=== PATIENT | female | born 1960 | race Caucasian/White ===

== ENCOUNTER → 2020-12-05 14:00 | Outpatient (CLI) | payer OTHER, SELFPAY ==
[2020-12-05] MEDS: COVID-19 VACC #1, MRNA(MOD) 100 MCG/0.5 ML VIAL IM (14:05)
== END ==
PROVIDERS: Visit Provider Internal Medicine
DX: Z23 Encounter for immunization (principal)
CPT/HCPCS: 0011A; 91301

== ENCOUNTER → 2021-01-02 14:01 | Outpatient (CLI) | payer OTHER, SELFPAY ==
[2021-01-02] MEDS: COVID-19 VACC #2, MRNA(MOD) 100 MCG/0.5 ML VIAL IM (14:10)
== END ==
PROVIDERS: Visit Provider Internal Medicine
DX: Z23 Encounter for immunization (principal)
CPT/HCPCS: 0012A; 91301

== ENCOUNTER 2021-05-01 16:44 | Emergency (ER) | payer OTHER, SELFPAY ==
[2021-05-01 16:48] VITALS: BP 174/97; PULSE 94; RESP 18; TEMP 37.1; O2SAT 100
[2021-05-01 17:28] LABS: COVID19 -Nasal RAPID Negative (Negative)
--- NOTE | 2021-05-01 17:56 | ED.RECABL ---
HPI - Recheck/Abnormal Lab/Rx <Vanessa Gupta PA-C - Last Filed: 05/01/21 20:21> General Chief Complaint: Recheck/Abnormal Lab/Rx Stated Complaint: states had exposure to Covid Time Seen by Provider: 05/01/21 17:43 Source: patient Mode of arrival: Ambulatory History of Present Illness HPI narrative: [age] to year old female COVID vaccinated who presents to the ER requesting COVID testing as she may have been exposed to COVID. Patient states that she was around a friend of hers whose son tested positive today. 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 Denies any symptoms today. Related Data Previous Rx's Medication Instructions Recorded lisinopril 10 mg tablet 10 mg PO Q DAY #30 tab 01/23/17 Allergies Allergy/AdvReac Type Severity Reaction Status Date / Time No Known Allergies Allergy Uncoded 12/09/17 12:23 Review of Systems <Vanessa Gupta PA-C - Last Filed: 05/01/21 20:21> Review of Systems Narrative: General: denies fever, chills Head/Neck: denies headache, neck pain Eyes: denies visual changes, eye pain Cardio: denies chest pain, palpitations Respiratory: denies shortness of breath, cough GI: denies abdominal pain, nausea, vomiting, or diarrhea : denies dysuria, hematuria MSK: denies joint pain, muscle weakness Skin: denies rash, itching Neuro: denies numbness, tingling Patient History <Vanessa Gupta PA-C - Last Filed: 05/01/21 20:21> Surgical History History of bilateral salpingo-oophorectomy (BSO) Family History Mother Age: 82 Cancer Hypertension Lymphoma Social History Smoking Status: Current every day smoker Smoking Status: Current every day smoker Exam <Vanessa Gupta PA-C - Last Filed: 05/01/21 20:21> Narrative Exam Narrative: Independently reviewed vitals signs and nursing notes. General: Awake, alert, nontoxic, no cardiorespiratory distress Head/Neck: Atraumatic, neck full range of motion Eyes: EOMI, conjunctiva normal Nose: nares patent, no rhinorrhea Cardio: Regular rate and rhythm, no peripheral edema Respiratory: respirations unlabored without wheezing, stridor, or rales. No retractions. MSK: Moves all extremities, neurovascularly intact Skin: Normal capillary refill, no rash Neuro: Normal speech and cognition, normal gait Initial Vital Signs Initial Vital Signs: Vital Signs Temperature 98.7 F 05/01/21 16:48 Pulse Rate 94 H 05/01/21 16:48 Respiratory Rate 18 05/01/21 16:48 Blood Pressure 174/97 H 05/01/21 16:48 Pulse Oximetry 100 05/01/21 16:48 <Qing Ward DO - Last Filed: 05/06/21 02:29> Initial Vital Signs Initial Vital Signs: Vital Signs Temperature 98.7 F 05/01/21 16:48 Pulse Rate 94 H 05/01/21 16:48 Respiratory Rate 18 05/01/21 16:48 Blood Pressure 174/97 H 05/01/21 16:48 Pulse Oximetry 100 05/01/21 16:48 Course <Vanessa Gupta PA-C - Last Filed: 05/01/21 20:21> Orders Ordered: ED Orders 05/01/21 17:04 COVID19 -Nasal swab/Pre-Proc Stat Vital Signs Vital signs: Vital Signs - 8 hr 05/01/21 16:48 Temperature 98.7 F Pulse Rate 94 H Respiratory Rate 18 Blood Pressure 174/97 H Pulse Oximetry 100 <Qing Ward DO - Last Filed: 05/06/21 02:29> Orders Ordered: ED Orders 05/01/21 17:04 COVID19 -Nasal swab/Pre-Proc Stat Vital Signs Vital signs: Vital Signs - 8 hr 05/01/21 16:48 Temperature 98.7 F Pulse Rate 94 H Respiratory Rate 18 Blood Pressure 174/97 H Pulse Oximetry 100 MDM - Recheck/Abnormal Lab/Rx <BLACK Kohler Last Filed: 05/01/21 20:21> Lab Data Labs: Lab Results 05/01/21 Range/Units 17:04 SARS-CoV-2 (PCR) Negative (Negative) MDM Narrative Medical decision making narrative: 60-year-old COVID vaccinated female who presents to the ER requesting COVID testing for distant/possible exposure. Denies any symptoms today. COVID negative. Please follow up with PCP as directed. Return to clinic/ER precautions discussed with patient for new, not-improving, or worsening symptoms. <Qing Ward DO - Last Filed: 05/06/21 02:29> Lab Data Labs: Lab Results 05/01/21 Range/Units 17:04 SARS-CoV-2 (PCR) Negative (Negative) Discharge Plan Departure Patient Disposition: Home Clinical Impression: Lab test negative for COVID-19 virus Activity Restrictions/Additional Instructions: * Your COVID test today was negative. *What to do: [ ] New medication prescriptions sent to your pharmacy: [ ] [ ] New medication written as a paper prescription [X] No new medications given * if he began of symptoms, please seek retesting with her primary care office or local pharmacy. * if you do not have a primary care provider, please contact the [facility] Resource line at [phone]. They will ask some questions about your medical history and help to get up with a doctor in the community. * Return to the if you should have any new, worsening, or concerning symptoms, such as [chest pain, SOB, cough, fever]. Prescriptions: No Action lisinopril 10 MG tablet 10 mg PO Q DAY Qty: 30 RF: 0 <Qing Ward DO - Last Filed: 05/06/21 02:29> Cosign ED Attending Zullyature Attestation: I was immediately available in the department for consultation. Documentation has been reviewed.
== END 2021-05-01 18:43 | disposition home or self-care (01) ==
PROVIDERS: Emergency Medicine; Emergency Provider Physician Assistant
DX: Z20.822 Contact with and (suspected) exposure to COVID-19 (principal)
CPT/HCPCS: 87635; 99281; 99282; C9803

== ENCOUNTER 2021-07-14 15:01 | Emergency (ER) | payer MEDICAID, SELFPAY ==
[2021-07-14 15:04] VITALS: BP 200/105; PULSE 89; RESP 22; TEMP 36.2; O2SAT 98
[2021-07-14 15:41] LABS: COVID19 -Nasal RAPID POSITIVE (Negative)
[2021-07-14 17:01] VITALS: BP 178/89; PULSE 84; RESP 18; O2SAT 99
--- NOTE | 2021-07-14 20:04 | ED_ITS ---
HPI - URI/Sore Throat <CLAUDE Lassiter - Last Filed: 07/14/21 20:12> General Chief Complaint: Upper Respiratory Symptoms Stated Complaint: EXPOSED TO COVID RASPY THROAT Time Seen by Provider: 07/14/21 16:16 Source: patient Mode of arrival: Ambulatory History of Present Illness HPI Narrative: 61-year-old female presents to the emergency department today for concern for COVID, she reports that she has a raspy voice, sore throat, she has had a cough which started last night, she believes she was exposed to COVID recently and was requesting testing. She denies having a fever, she endorses being a smoker, she reports her last COVID vaccination was in November and she has had her 1st and 2nd. 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 She denies any other symptoms, denies shortness of breath, denies nausea or vomiting or diarrhea, loss of sense of smell or taste, difficulty breathing, or chest pain. She denies a cardiac history as well. Able to tolerate fluids by mouth: Yes Related Data Previous Rx's Medication Instructions Recorded lisinopril 10 mg tablet 10 mg PO Q DAY #30 tab 01/23/17 acetaminophen 300 mg-codeine 30 mg 1 tab PO TID PRN #14 tab 07/14/21 tablet aspirin 81 mg chewable tablet 81 mg PO DAILY #14 tab 07/14/21 Allergies Allergy/AdvReac Type Severity Reaction Status Date / Time No Known Allergies Allergy Uncoded 12/09/17 12:23 Review of Systems <CLAUDE Lassiter - Last Filed: 07/14/21 20:12> Review of Systems Narrative: General: denies fever, chills Head/Neck: denies headache, neck pain Eyes: denies visual changes, eye pain Cardio: denies chest pain, palpitations Respiratory: denies shortness of breath, endorses a frequent cough, and a raspy voice GI: denies abdominal pain, nausea, vomiting, or diarrhea : denies dysuria, hematuria MSK: denies joint pain, muscle weakness Skin: denies rash, itching Neuro: denies numbness, tingling Patient History <CLAUDE Lassiter - Last Filed: 07/14/21 20:12> Medical History (Updated 07/25/21 @ 14:59 by Cinthia Mcmanus MD) COVID-19 Hypertension (05/30/14) Surgical History History of bilateral salpingo-oophorectomy (BSO) Family History Mother Age: 83 Cancer Hypertension Lymphoma Social History Smoking Status: Current every day smoker Smoking Status: Current every day smoker Exam <CLAUDE Lassiter - Last Filed: 07/14/21 20:12> Narrative Exam Narrative: Independently reviewed vitals signs and nursing notes. General: Awake, alert, nontoxic, no cardiorespiratory distress Head/Neck: Atraumatic, neck full range of motion Eyes: EOMI, conjunctiva normal Nose: nares patent, no rhinorrhea Mouth/Throat: moist mucus membranes, posterior pharynx normal, no oral lesions Cardio: Regular rate and rhythm, no peripheral edema Respiratory: respirations unlabored without wheezing, stridor, or rales. No retractions. Frequent cough present, raspy voice also present, patient does not appear to be in any distress. GI: Abdomen soft, nontender MSK: Moves all extremities, neurovascularly intact Skin: Normal capillary refill, no rash Neuro: Normal speech and cognition, normal gait Initial Vital Signs Initial Vital Signs: Vital Signs Temperature 97.2 F L 07/14/21 15:04 Pulse Rate 89 07/14/21 15:04 Respiratory Rate 22 07/14/21 15:04 Blood Pressure 200/105 H 07/14/21 15:04 Pulse Oximetry 98 07/14/21 15:04 <Qing Ward DO - Last Filed: 07/28/21 08:11> Initial Vital Signs Initial Vital Signs: Vital Signs Temperature 97.2 F L 07/14/21 15:04 Pulse Rate 89 07/14/21 15:04 Respiratory Rate 22 07/14/21 15:04 Blood Pressure 200/105 H 07/14/21 15:04 Pulse Oximetry 98 07/14/21 15:04 Scores <CLAUDE Lassiter - Last Filed: 07/14/21 20:12> Yanni Criteria for PE Clinical signs and symptoms of DVT: No PE is #1 Dx or equally likely: No Heart rate > 100: No Immobilization at least 3 days or surg in previous 4 weeks: No History of PE or DVT: No Hemoptysis: No Malignancy w/Treatment within 6 months or palliative: No Wells' PE Score total: 0 Wells' Criteria for DVT Active Cancer (Treatment within 6 months): No Bedridden recently >3 days or major surgery within 4 weeks: No Calf Swelling >3cm compared to other leg: No Collateral (nonvericose) superficial veins present: No Entire leg swollen: No Localized tenderness along the deep vein system: No Pitting edema, confined to symtomatic leg: No Paralysis, paresis, or recent plaster immobilization of ext: No Previously documented DVT: No Alternative dx to DVT as likely or more likely: No Yanni criteria for DVT: 0 <Qing Ward DO - Last Filed: 07/28/21 08:11> Yanni Criteria for PE Wells' PE Score total: 0 Wells' Criteria for DVT Nghia' criteria for DVT: 0 Course <CLAUDE Lassiter - Last Filed: 07/14/21 20:12> Orders Ordered: ED Orders 07/14/21 15:13 COVID19 -Nasal swab/Pre-Proc Stat Vital Signs Vital signs: Vital Signs - 8 hr 07/14/21 15:04 07/14/21 17:01 Temperature 97.2 F L Pulse Rate 89 84 Respiratory Rate 22 18 Blood Pressure 200/105 H 178/89 H Pulse Oximetry 98 99 <Qing Ward DO - Last Filed: 07/28/21 08:11> Orders Ordered: ED Orders 07/14/21 15:13 COVID19 -Nasal swab/Pre-Proc Stat Vital Signs Vital signs: Vital Signs - 8 hr 07/14/21 15:04 07/14/21 17:01 Temperature 97.2 F L Pulse Rate 89 84 Respiratory Rate 22 18 Blood Pressure 200/105 H 178/89 H Pulse Oximetry 98 99 MDM - URI/Sore Throat <CLAUDE Lassiter - Last Filed: 07/14/21 20:12> Lab Data Labs: Lab Results 07/14/21 Range/Units 15:13 SARS-CoV-2 (PCR) Positive H (Negative) MDM Narrative Medical decision making narrative: 61-year-old female presents to the emergency department for 1 day of cough and raspy voice for evaluation of COVID status. 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 Discussed her cardiovascular risk as a smoker with hypertension and treatments possible to help with her cough. Recommend taking a baby aspirin daily for the course of her illness, as well as taking Tylenol threes as needed for her cough, and having a low threshold to return to the emergency department if she develops any shortness of breath, chest pain, difficulty breathing, worsening of her symptoms. Patient states understanding of this and will follow up with her PCP after her illness otherwise will return to the emergency department if she gets any worse. Patient is appropriate and amenable to discharge home. Vital signs are stable on repeat examination is unremarkable. Patient has been informed of results. Patient has been given strict return to ER precautions for any new or worsening symptoms. Patient understands to follow up closely with outpatient providers as instructed. Patient understands plan and agrees to discharge home. All questions and concerns answered at this time. <Qing Ward, DO - Last Filed: 07/28/21 08:11> Lab Data Labs: Lab Results 07/14/21 Range/Units 15:13 SARS-CoV-2 (PCR) Positive H (Negative) Discharge Plan Departure Patient Disposition: Home Clinical Impression: COVID-19 Instructions: DI for COVID-19 (Suspected or Confirmed ), Can COVID-19 be prevented? Activity Restrictions/Additional Instructions: *You have been diagnosed with COVID-19. I sent a prescription for aspirin and Tylenol 3 over to [facility] for you, please pick these up and you can ask for Vicks vapor rub. Please isolate yourself for 10 days from the onset symptoms which is 10 a day. If he develops any worsening of your symptoms including shortness of breath, difficulty breathing, chest pain, racing heart rate, or anything that feels concerning please return to the emergency department for another evaluation. Taking a baby aspirin every day should help reduce your cardiovascular risk. Please do not blame yourself or feel guilty for exposing your elderly contacts, you did not mean to, an you did right by your community and by them by getting vaccinated, so thank you for doing so. I am sorry that this happened. *What to do: *Please continue to take your regular medications as directed. [x ] New medication prescriptions sent to your pharmacy: [ [facility]] [ ] New medication written as a paper prescription [ ] No new medications given *Please follow up with your primary care provider in 2-3 days, call for an appointment. Let them know you were seen in the Emergency Department and that we ask that you be seen in follow up. We will electronically transmit a record of today's note if your PCP is in our system *If you do not have a primary care provider please contact the [facility] Resource line at [phone]. They will ask some questions about your medical history and help get you set up with a doctor in the community. *Return to Emergency Department if you should have any new, worsening or concerning symptoms, such as [fever greater than 101F, chills, worsening pain, persistent vomiting or other bothersome symptoms] Prescriptions: New aspirin 81 mg tablet,chewable 81 mg PO DAILY Qty: 14 0RF acetaminophen-codeine 300-30 mg tablet 1 tab PO TID PRN (Reason: pain) Qty: 14 0RF No Action lisinopril 10 MG tablet 10 mg PO Q DAY Qty: 30 0RF Referrals: [facility] [Provider Group] - 1 week <Qing Ward DO - Last Filed: 07/28/21 08:11> Cosliliam ED Attending Zullyature Attestation: I was immediately available in the department for consultation. Documentation has been reviewed.
== END 2021-07-14 17:01 | disposition home or self-care (01) ==
PROVIDERS: Emergency Medicine; Emergency Provider Nurse Practitioner Critical Care Medicine
DX: U07.1 COVID-19 (principal)
CPT/HCPCS: 87635; 99281; 99282; C9803

== ENCOUNTER 2021-07-25 13:59 | Emergency (ER) | payer MEDICAID, SELFPAY ==
[2021-07-25 14:13] VITALS: BP 218/122; PULSE 115; RESP 18; TEMP 36.6; O2SAT 100; BMI 21.6
--- NOTE | 2021-07-25 14:16 | ED.GENADULT ---
HPI - General Adult General Chief complaint: Recheck/Abnormal Lab/Rx Stated complaint: COVID+ 11 days ago, lingering symptoms Time Seen by Provider: 07/25/21 14:11 History of Present Illness HPI narrative: 61-year-old woman with 2 COVID vaccinations, history of hypertension currently on day 11 of COVID symptoms with oxygen saturations at 100%. She comes in today looking for reassurance and wondering when she will actually feel better. She states that she has got a mild cough continues to be significantly fatigued. She no longer has fevers, vomiting, diarrhea, abdominal pain, headaches. She notes that she was a smoker prior to getting COVID but did not have a chronic cough at that point. The dyspnea is minimal. 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 Related Data Previous Rx's Medication Instructions Recorded lisinopril 10 mg tablet 10 mg PO Q DAY #30 tab 01/23/17 acetaminophen 300 mg-codeine 30 mg 1 tab PO TID PRN #14 tab 07/14/21 tablet aspirin 81 mg chewable tablet 81 mg PO DAILY #14 tab 07/14/21 Allergies Allergy/AdvReac Type Severity Reaction Status Date / Time No Known Allergies Allergy Uncoded 12/09/17 12:23 Review of Systems Review of Systems Narrative: Remainder of complete review of systems is otherwise unremarkable except for that included in the HPI. Patient History Medical History (Updated 07/25/21 @ 14:59 by Cinthia Mcmanus MD) COVID-19 Hypertension (05/30/14) Surgical History History of bilateral salpingo-oophorectomy (BSO) Family History Mother Age: 83 Cancer Hypertension Lymphoma Social History Smoking Status: Current every day smoker Smoking Status: Current every day smoker Exam Narrative Exam Narrative: General: Alert appropriate in no acute distress Respiratory: Able to speak in full sentences, no obvious respiratory distress Skin: No obvious rashes, warm and dry Neurologic: Grossly intact no obvious asymmetries or abnormalities Psych: appropriate insight and affect, cooperative Initial Vital Signs Initial Vital Signs: Vital Signs Temperature 97.9 F 07/25/21 14:13 Pulse Rate 115 H 07/25/21 14:13 Respiratory Rate 18 07/25/21 14:13 Blood Pressure 218/122 H 07/25/21 14:13 Pulse Oximetry 100 07/25/21 14:13 Course Vital Signs Vital signs: Vital Signs - 8 hr 07/25/21 14:13 07/25/21 14:42 Temperature 97.9 F Pulse Rate 115 H 93 H Respiratory Rate 18 18 Blood Pressure 218/122 H 198/110 H Pulse Oximetry 100 99 Medical Decision Making MDM Narrative Medical decision making narrative: 61-year-old woman on day 11 of COVID symptoms still with fatigue mild cough most of her symptoms have resolved. We talked about conservative recommendations being return to work 14 days after your initial symptoms and absence of additional symptoms. Explained why negative COVID tests are not typically used -PCR test can remain positive for months without being actively infectious Reassurance is given. She is safe from discharge Discharge Plan Departure Patient Disposition: Home Clinical Impression: COVID-19 Instructions: DI for COVID-19 (Suspected or Confirmed ) Activity Restrictions/Additional Instructions: Thank you for coming in today Your oxygen level was 100%. Clearly you are improving from your COVID infection. Unfortunately, I am unable to tell you when your fatigue will resolve. 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 I do suspect that this is anxiety however, I would recommend that you check your blood pressures outside of the department, continue your daily lisinopril and follow-up with her primary care physician. I wish you the best Prescriptions: No Action lisinopril 10 MG tablet 10 mg PO Q DAY Qty: 30 0RF aspirin 81 mg tablet,chewable 81 mg PO DAILY Qty: 14 0RF acetaminophen-codeine 300-30 mg tablet 1 tab PO TID PRN (Reason: pain) Qty: 14 0RF
--- NOTE | 2021-07-25 14:40 | ED.GENADULT ---
HPI - General Adult General Chief complaint: Recheck/Abnormal Lab/Rx Stated complaint: COVID+ 11 days ago, lingering symptoms Time Seen by Provider: 07/25/21 14:11 Source: patient Mode of arrival: Ambulatory Limitations: no limitations History of Present Illness HPI narrative: 61-year-old woman Related Data Previous Rx's Medication Instructions Recorded lisinopril 10 mg tablet 10 mg PO Q DAY #30 tab 01/23/17 acetaminophen 300 mg-codeine 30 mg 1 tab PO TID PRN #14 tab 07/14/21 tablet aspirin 81 mg chewable tablet 81 mg PO DAILY #14 tab 07/14/21 Allergies Allergy/AdvReac Type Severity Reaction Status Date / Time No Known Allergies Allergy Uncoded 12/09/17 12:23 Patient History Surgical History History of bilateral salpingo-oophorectomy (BSO) Family History Mother Age: 83 Cancer Hypertension Lymphoma Social History Smoking Status: Current every day smoker Smoking Status: Current every day smoker Substance Use Type: does not use Exam Initial Vital Signs Initial Vital Signs: Vital Signs Temperature 97.9 F 07/25/21 14:13 Pulse Rate 115 H 07/25/21 14:13 Respiratory Rate 18 07/25/21 14:13 Blood Pressure 218/122 H 07/25/21 14:13 Pulse Oximetry 100 07/25/21 14:13 Course Vital Signs Vital signs: Vital Signs - 8 hr 07/25/21 14:13 Temperature 97.9 F Pulse Rate 115 H Respiratory Rate 18 Blood Pressure 218/122 H Pulse Oximetry 100 Discharge Plan Departure Prescriptions: No Action lisinopril 10 MG tablet 10 mg PO Q DAY Qty: 30 0RF aspirin 81 mg tablet,chewable 81 mg PO DAILY Qty: 14 0RF acetaminophen-codeine 300-30 mg tablet 1 tab PO TID PRN (Reason: pain) Qty: 14 0RF
[2021-07-25 14:42] VITALS: BP 198/110; PULSE 93; RESP 18; O2SAT 99
[2021-07-25 15:05] VITALS: BP 172/96; PULSE 94; RESP 17; O2SAT 97
== END 2021-07-25 15:07 | disposition home or self-care (01) ==
PROVIDERS: Emergency Provider Emergency Medicine
DX: U07.1 COVID-19 (principal)
CPT/HCPCS: 99281

== ENCOUNTER 2021-10-30 12:54 | Emergency (ER) | payer OTHER, MEDICAID, SELFPAY ==
[2021-10-30 13:17] VITALS: BP 228/119; PULSE 76; RESP 16; TEMP 36.7; O2SAT 98
[2021-10-30] MEDS: lisinopriL 10 MG TABLET PO (13:34)
--- NOTE | 2021-10-30 14:41 | PC.NURSE ---
Called at 1441: Registration states that she went out for air
[2021-10-30 14:49] VITALS: PULSE 90; O2SAT 99
[2021-10-30 15:00] VITALS: PULSE 99; O2SAT 97
[2021-10-30 15:01] VITALS: BP 230/123; PULSE 100; RESP 22; O2SAT 93
--- NOTE | 2021-10-30 15:08 | ED.GENADULT ---
HPI - General Adult <KELLY Crouch- - Last Filed: 10/30/21 15:59> General Chief complaint: Hypertension Stated complaint: High BP Time Seen by Provider: 10/30/21 14:47 Source: patient Mode of arrival: Ambulatory Limitations: no limitations History of Present Illness HPI narrative: The patient is a 61-year-old female current everyday smoker who presents with multiple complaints including hypertension, and a stiff neck. She drove from [address] [place] [address] where she was helping take care of her sister who had an SD. she states that she drove yesterday and then her neck is so stiff and painful she cannot turn her head. She does note that she has have high blood pressure and has been without insurance for many years. She used to be on lisinopril and is wanting if she can get a prescription of lisinopril. She was previously on 10 mg lisinopril a day. The patient did drive here and is unable to get a ride from the emergency department today. She denies any falls or trauma. She denies any chest pain or shortness of breath. Related Data Previous Rx's Medication Instructions Recorded lisinopril 10 mg tablet 10 mg PO Q DAY #30 tab 01/23/17 acetaminophen 300 mg-codeine 30 mg 1 tab PO TID PRN #14 tab 07/14/21 tablet aspirin 81 mg chewable tablet 81 mg PO DAILY #14 tab 07/14/21 Allergies Allergy/AdvReac Type Severity Reaction Status Date / Time No Known Allergies Allergy Uncoded 12/09/17 12:23 Review of Systems <KELLY Crouch- - Last Filed: 10/30/21 15:59> Review of Systems Narrative: GENERAL: Denies chills, fatigue, malaise, fever, sweats. HEENT: Denies sinus pain, ear pain, sore throat, difficulty swallowing, dizziness. RESPIRATORY: See HPI CARDIOVASCULAR: See HPI GASTROINTESTINAL: Denies nausea, vomiting, abdominal pain, diarrhea, constipation, melena. : Denies dysuria, frequency, incontinence, hematuria, urinary retention. MUSCULOSKELETAL: See HPI SKIN: Denies rash, skin lesions, or other NEUROLOGIC: Denies weakness, headache, numbness, change in speech, confusion, seizures, incoordination. PSYCHIATRIC: No concerning psychosocial issues. 12 point review of systems is negative except for those stated above Patient History <CHANDRIKA Crouch - Last Filed: 10/30/21 15:59> Medical History COVID-19 Hypertension (05/30/14) Surgical History History of bilateral salpingo-oophorectomy (BSO) Family History Mother Age: 83 Cancer Hypertension Lymphoma Social History Smoking Status: Current every day smoker Smoking Status: Current every day smoker Substance Use Type: does not use Exam <CHANDRIKA Crouch - Last Filed: 10/30/21 15:59> Narrative Exam Narrative: GENERAL: This is a well-nourished, well-developed patient, appears anxious HEAD: Atraumatic. Normocephalic. No temporal or scalp tenderness. EYES: Pupils equal round and reactive. Extraocular motions intact. No scleral icterus. No injection or drainage. ENT: Nose without bleeding, purulent drainage or septal hematoma. Wearing a mask. Airway patent. NECK: Trachea midline. No JVD or lymphadenopathy. Supple, nontender, no meningeal signs. CARDIOVASCULAR: Regular rate and rhythm RESPIRATORY: No cough. No increased respiratory effort. No accessory muscle use. EXTREMITIES: No clubbing, cyanosis, or edema. No joint tenderness, effusion, or edema noted. BACK: Pain to bilateral paraspinal neck muscles. No pain to midline neck palpation. Nontender without deformity or crepitance. No flank tenderness. NEURO: AOx3. Clear speech. No gross cranial nerve deficit. SKIN: No rash or erythema on visible skin. Initial Vital Signs Initial Vital Signs: Vital Signs Temperature 98.1 F 10/30/21 13:17 Pulse Rate 76 10/30/21 13:17 Respiratory Rate 16 10/30/21 13:17 Blood Pressure 228/119 H 10/30/21 13:17 Pulse Oximetry 98 10/30/21 13:17 <Margaret Figueroa DO - Last Filed: 10/31/21 07:53> Initial Vital Signs Initial Vital Signs: Vital Signs Temperature 98.1 F 10/30/21 13:17 Pulse Rate 76 10/30/21 13:17 Respiratory Rate 16 10/30/21 13:17 Blood Pressure 228/119 H 10/30/21 13:17 Pulse Oximetry 98 10/30/21 13:17 Course <JAVAN CrouchP-BC - Last Filed: 10/30/21 15:59> Orders Ordered: Discontinued Medications Lidocaine (Lidocaine Patch 1 Each Adh..Patch) 1 each TOP NOW ONE Stop: 10/30/21 15:05 Last Admin: 10/30/21 15:17 Dose: 1 each Documented by: HENRRY Lisinopril (Lisinopril 10 Mg Tablet) 10 mg PO NOW ONE Stop: 10/30/21 13:24 Last Admin: 10/30/21 13:34 Dose: 10 mg Documented by: MARIELLE Vital Signs Vital signs: Vital Signs - 8 hr 10/30/21 13:17 10/30/21 14:49 10/30/21 15:00 Temperature 98.1 F Pulse Rate 76 90 99 H Respiratory Rate 16 Blood Pressure 228/119 H Pulse Oximetry 98 99 97 10/30/21 15:01 10/30/21 15:15 Temperature Pulse Rate 100 H 103 H Respiratory Rate 22 Blood Pressure 230/123 H 230/123 H Pulse Oximetry 93 98 <Margaret Figueroa DO - Last Filed: 10/31/21 07:53> Orders Ordered: Discontinued Medications Lidocaine (Lidocaine Patch 1 Each Adh..Patch) 1 each TOP NOW ONE Stop: 10/30/21 15:05 Last Admin: 10/30/21 15:17 Dose: 1 each Documented by: HENRRY Lisinopril (Lisinopril 10 Mg Tablet) 10 mg PO NOW ONE Stop: 10/30/21 13:24 Last Admin: 10/30/21 13:34 Dose: 10 mg Documented by: MARIELLE Vital Signs Vital signs: Vital Signs - 8 hr 10/30/21 13:17 10/30/21 14:49 10/30/21 15:00 Temperature 98.1 F Pulse Rate 76 90 99 H Respiratory Rate 16 Blood Pressure 228/119 H Pulse Oximetry 98 99 97 10/30/21 15:01 10/30/21 15:15 Temperature Pulse Rate 100 H 103 H Respiratory Rate 22 Blood Pressure 230/123 H 230/123 H Pulse Oximetry 93 98 Medical Decision Making <Qing Christine, MEDICAL COORDINATOR [employer] USE-BC - Last Filed: 10/30/21 15:59> [facility] Narrative Medical decision making narrative: The patient is a 61-year-old female who presents with multiple complaints including neck pain after a long drive and hypertension. She is requesting prescription for antihypertensive at this point time. She was previously on lisinopril so received a dose of that in triage. The patient does not want to have lab work done today. I discussed that that would help evaluate for any damage related to her blood pressure, particularly in her heart and kidneys I discussed that this is appropriate given that she would like blood pressure medication and has had essentially hypertension unknown duration. The patient repeatedly declines lab work and EKG. Stating that she is ?not prepared to do that today. I discussed that she does not need an IV, we could do a quick phlebotomy stick to get the labs needed and she again refused. I discussed that she could be having severe illness including kidney dysfunction. The patient declined any further workup for me, and Dr Figueroa spoke to the patient to encourage her to get lab work etcetera. The patient declined to have any lab work or workup done in the emergency department. She left against medical advice with understanding that untreated hypertension increases her risk of heart attack stroke and . I encouraged her to follow up with primary care provider come back to the emergency department for any acute concerns. I did attempt to help control her neck pain and through lidocaine patch, offered muscle relaxers etcetera and further evaluation. However the patient declined this at this point time. The patient left against medical advice fully competent to make her own decisions. Discharge Plan Departure Patient Disposition: Left Against Medical Advice Clinical Impression: Hypertension, Acute neck pain Instructions: DI for High Blood Pressure, DI for Neck Pain Activity Restrictions/Additional Instructions: Thank you for trusting us with your care today. You elected to leave against medical advice. Please come back to emergency department for any acute concerns such as chest pain shortness of breath etcetera. Consistently blood pressure puts you at high risk of heart attack, stroke, and . This needs to be re-evaluated. Please come back to the emergency department for any acute concerns and follow up with primary care provider. Prescriptions: No Action lisinopril 10 MG tablet 10 mg PO Q DAY Qty: 30 0RF aspirin 81 mg tablet,chewable 81 mg PO DAILY Qty: 14 0RF acetaminophen-codeine 300-30 mg tablet 1 tab PO TID PRN (Reason: pain) Qty: 14 0RF Stand Alone Forms: Against Medical Advice <Margaret Figueroa DO - Last Filed: 10/31/21 07:53> Cosign ED Attending Gui Attestation: I was immediately available in the department for consultation. Documentation has been reviewed. I agree with assessment and plan.
[2021-10-30 15:15] VITALS: BP 230/123; PULSE 103; O2SAT 98
[2021-10-30] MEDS: LIDOCAINE PATCH 1 EACH ADH..PATCH TOP (15:17)
--- NOTE | 2021-10-30 15:32 | PC.NURSE ---
pt given lido patch on neck, pt states she is 'feeling better but she is not mentally ready for us to take care of her.' discharge instructions gone over and extensive education on signs and symptoms of heart attack and stroke. pt verbalized understanding. encouraged to return with any of these or when she is feeling more relaxed and is ready and willing to have the full work up done.
== END 2021-10-30 15:36 | disposition left against medical advice (07) ==
PROVIDERS: Emergency Provider Nurse Practitioner Family
DX: I10 Essential (primary) hypertension (principal); M54.2 Cervicalgia; Z53.29 Procedure and treatment not carried out because of patient's decision for other reasons
CPT/HCPCS: 99283

== ENCOUNTER 2023-10-18 17:42 | Emergency (ER) | payer MEDICARE, MEDICAID, SELFPAY ==
[2023-10-18 18:01] VITALS: BP 149/78; PULSE 89; RESP 18; TEMP 36.7; O2SAT 100; BMI 19.8
--- NOTE | 2023-10-18 19:57 | ED_ITS ---
HPI - Skin/Abscess/Foreign Bdy General Chief complaint: Skin/Abscess/Foreign Body Stated complaint: Post hospital IV issue Time Seen by Provider: 10/18/23 17:49 Source: patient Mode of arrival: Ambulatory Limitations: no limitations History of Present Illness HPI narrative: 63yoF presents for evaluation of right forearm pain and swelling. Patient was recently in the hospital in [place] for a slow GI bleed and was discharged several days ago. She is noticed several days of worsening pain and swelling around the site of her previous IV. Since it is becoming more swollen and more painful she decided to have it evaluated today. She has a colonoscopy scheduled in the next week to figure out the cause of her GI bleed. Related Data Previous Rx's Medication Instructions Recorded lisinopril 10 mg tablet 10 mg PO Q DAY #30 tabs 01/23/17 acetaminophen 300 mg-codeine 30 mg 1 tab PO TID PRN pain #14 tabs 07/14/21 tablet aspirin 81 mg chewable tablet 81 mg PO DAILY #14 tabs 07/14/21 doxycycline hyclate 100 mg capsule 100 mg PO BID #14 caps 10/18/23 hydrocodone 5 mg-acetaminophen 325 1 tab PO Q8H PRN pain #10 tabs 10/18/23 mg tablet Allergies Allergy/AdvReac Type Severity Reaction Status Date / Time bee venom protein (honey bee) Allergy Verified 10/18/23 18:08 Review of Systems Review of Systems Narrative: Negative except as noted above Patient History Medical History COVID-19 Hypertension (05/30/14) Surgical History History of bilateral salpingo-oophorectomy (BSO) Family History Mother Age: 85 Cancer Hypertension Lymphoma Social History Smoking Status: Current every day smoker Smoking Status: Current every day smoker alcohol intake frequency: a few times a month Substance Use Type: does not use Exam Initial Vital Signs Initial Vital Signs: Vital Signs Temperature 98.1 F 10/18/23 18:01 Pulse Rate 89 10/18/23 18:01 Respiratory Rate 18 10/18/23 18:01 Blood Pressure 149/78 H 10/18/23 18:01 Pulse Oximetry 100 10/18/23 18:01 Oxygen Delivery Method Room Air 10/18/23 18:01 Const: Awake, alert, no acute distress, nontoxic appearing Cardiac: regular rate, regular rhythm RESP: unlabored, clear bilaterally, no wheezing MSK: 4x3cm area of induration around previous venipuncture site L distal forearm. Skin: Warm, Dry, induration and warmth over previous distal L forearm venipuncture site Neuro: AO x3, CN II-XII grossly intact, moves all extremities Psych: affect normal, mood normal, not suicidal, not homicidal Course Orders Ordered: Discontinued Medications Hydrocodone Bitart/Acetaminophen (Hydrocodone/Acet 5/325 Prepack) 1 bottle MISC DIRECTED ONE Stop: 10/18/23 19:58 Last Admin: 10/18/23 20:06 Dose: 1 bottle Documented By: OLY Vital Signs Vital signs: Vital Signs - 8 hr 10/18/23 18:01 Temperature 98.1 F Pulse Rate 89 Respiratory Rate 18 Blood Pressure 149/78 H Pulse Oximetry 100 Oxygen Delivery Method Room Air MDM - Skin/Abscess/Foreign Bdy MDM Narrative Medical decision making narrative: Thrombophlebitis with surrounding induration and warmth left forearm. Neurovascularly intact. Point of care ultrasound placed over a vena puncture site, there was no abscess present. Due to the extent of the erythema and induration and since it has been spreading patient given a just in case antibiotic prescription. She was sent home with pain medications since she has not able to take NSAIDs for GI bleed and anemia. Counseled to elevate the limb, apply warm compresses frequently, and to follow up with her primary care doctor. Discharge Plan Departure Patient Disposition: Home Clinical Impression: Superficial thrombophlebitis Instructions: DI for Superficial Thrombophlebitis Activity Restrictions/Additional Instructions: Apply warm compresses frequently and keep your limb elevated. I am hopeful that this will resolve with the warm compresses, however if this does not improve then an antibiotic prescription has also been sent to your pharmacy. Prescriptions: New hydrocodone-acetaminophen 5-325 mg tablet 1 tab PO Q8H PRN (Reason: pain) Qty: 10 0RF doxycycline hyclate 100 mg capsule 100 mg PO BID Qty: 14 0RF No Action lisinopril 10 MG tablet 10 mg PO Q DAY Qty: 30 0RF aspirin 81 mg tablet,chewable 81 mg PO DAILY Qty: 14 0RF acetaminophen-codeine 300-30 mg tablet 1 tab PO TID PRN (Reason: pain) Qty: 14 0RF Stand Alone Forms: Patient Portal/API
--- NOTE | 2023-10-18 19:58 | PC.NURSE ---
Erythemia around previous iv catheter site. was recently at admitted to a hospital and this was the location of IV
[2023-10-18] MEDS: HYDROCODONE/ACET 5/325 PREPACK 1 BOTTLE MISC (20:06)
== END 2023-10-18 20:11 | disposition home or self-care (01) ==
PROVIDERS: Emergency Provider Emergency Medicine
DX: I80.8 Phlebitis and thrombophlebitis of other sites (principal)
CPT/HCPCS: 99281; 99283